=== PATIENT | male | born 1980 | race Caucasian/White ===

== ENCOUNTER → 2016-11-26 | Outpatient (CLI) | payer BC ==
[~2016-11-26] MED LIST: CEPH500C2 PO; METFORMIN PO; [UNRECOGNIZED DRUG - OTHER] PO
== END | disposition home or self-care (01) ==
LOC: C.PATHSPEC 13:27
PROVIDERS: ATTEND Family Medicine
DX: L91.8 Other hypertrophic disorders of the skin (principal)

== ENCOUNTER → 2016-12-17 | Outpatient (CLI) | payer BC ==
[2016-12-17 11:04] LABS: CALCIUM 9.1 mg/dl (8.5-10.1)
[2016-12-17 11:16] LABS: BLOOD UREA NITROGEN 13 mg/dl (7-18); BUN/CREATININE RATIO 9.8 (10-20); CARBON DIOXIDE 26 mmol/L (21-32); CHLORIDE 106 mmol/L (98-107); GLUCOSE 83 mg/dl (70-99); POTASSIUM 3.5 mmol/L (3.5-5.1); SODIUM 140 mmol/L (136-145)
[2016-12-17 11:18] LABS: ESTIMATED AVERAGE GLUCOSE 105 mg/dl; HA1C FLAG Normal (Normal)
[2016-12-17 11:32] LABS: RATIO 23.2 mcg/mg (0-30.0)
== END | disposition home or self-care (01) ==
LOC: C.LABBC 07:42
PROVIDERS: ATTEND Family Medicine
DX: E16.1 Other hypoglycemia (principal)

== ENCOUNTER → 2017-04-24 | Outpatient (CLI) | payer BC ==
--- NOTE | 2017-04-24 14:34 | DIAGNOSTIC IMAGING REPORT ---
BILATERAL LOWER EXTREMITY VENOUS DOPPLER HISTORY: Acute left lower extremity pain and swelling M79.606 Leg pain, posteriorLeft lower leg pain, evaluate for dvt COMPARISON STUDY: None. FINDINGS: There is normal compressibility, flow, and augmentation within the left lower extremity deep venous system. Within the area of concern of the lateral aspect left calf there is a focal hypoechoic mildly heterogeneous tissue which is somewhat linear and parallel to the skin surface, 4.2 x 1.2 x 1.0 cm demonstrating similar echogenicity characteristics to the adjacent musculature. Mild soft tissue edema seen within this region. IMPRESSION: 1. No sonographic evidence of deep venous thrombosis within the left lower extremity. 2. Within the area of concern within the lateral aspect left calf there is nonspecific focal hypoechoic mildly heterogeneous tissue measuring up to 4.2 cm suggesting intramuscular hematoma or alternatively fascial injury with muscular herniation. Electronically signed by: Triston Shine M.D. 04/24/2017 2:32 PM Dictated Date/Time: 04/24/2017 2:20 PM
== END | disposition home or self-care (01) ==
LOC: C.ULTR 13:38
PROVIDERS: ATTEND Nurse Practitioner Family
DX: M79.606 Pain in leg, unspecified (principal)